=== PATIENT | male | born 1960 | race Caucasian/White ===

== ENCOUNTER 2018-09-30 20:08 | Emergency (ER) | payer OTHER ==
[~2018-09-30] VITALS: Ht 175.3 cm; Wt 113.4 kg
[~2018-09-30 20:08] MED LIST: AMBIEN 10 MG TA10 MG PO; COREG PO; COZAAR 50 MG TA50 M2 PO; GUAIFENESIN/COD10 M1 PO; HYDROCODON-ACE1 EAC5 PO; K-DUR10 ME1 PO; LASIX 40 MG TAB40 M1 PO; LIORESAL 10 MG10 MG PO; LISINOPRIL10 MG PO; REQUIP 1 MG TABL1 M1 PO; RESTORIL15 MG PO; ROBITUSSIN10 MG PO; ZOLOFT50 MG PO
[2018-09-30] MEDS ORDERED: FLEXERIL PO (21:56)
[2018-09-30] MEDS ORDERED: NORCO 5-325 TA1 EACH PO (21:56)
[2018-09-30] MEDS ORDERED: IBUPROFEN 400400 M2 PO (21:56)
[2018-09-30 22:22] VITALS: BP 116/72
== END 2018-09-30 22:24 | disposition home or self-care (01) ==
LOC: ER 20:08
DX: M51.36 Other intervertebral disc degeneration, lumbar region (principal); I10 Essential (primary) hypertension; G25.81 Restless legs syndrome